=== PATIENT | male | born 1980 | race Caucasian/White ===

== ENCOUNTER 2019-10-14 17:00 | Emergency (ER) | payer MEDICAID ==
[~2019-10-14] VITALS: Ht 180.3 cm; Wt 108.9 kg
--- NOTE | 2019-10-14 17:06 | NUR ---
Patient ambulated to bed 3. RN evaluating patient at bedside.
[2019-10-14 17:13] VITALS: BP 132/102
--- NOTE | 2019-10-14 17:18 | NUR ---
39 Y/O M PRESENTING WITH ANAL PAIN DESCRIBED POKING SENSATION X2 DAYS 02/04. DENIES INJURY TO AREA. PER PT NOTICED BLEEDING NEXT TO ANAL AREA AND SLIGHT BLEEDING ON STOOL. LBM TODAY. PAIN WORSENED WITH PASSING OF STOOL. CHANGING UNDERWEAR Q12HRS. STATES NOTICES BLOOD AT NIGHTTIME, NOT MUCH BLEEDING THROUGHOUT THE DAY PER PT THERE IS A SMALL LUMP TO PERIANAL AREA. PT NKA. NO MEDICAL HX. RX NONE, PT MENTIONS USING [employer] RECREATIONAL DRUG. DENIES N/V/D. HX- NONE RX-NONE
--- NOTE | 2019-10-14 17:28 | NUR ---
ACCOMPANIED JARVIS TRAVIS FOR RECTAL EXAM.
--- NOTE | 2019-10-14 17:44 | NUR ---
Patient discharged with v/s stable. Written and verbal after care instructions given and explained. Patient alert, oriented and verbalized understanding of instructions. Ambulatory with steady gait. All questions addressed prior to discharge. ID band removed. Patient advised to follow up with PMD. Rx of IBUPROFEN, ANUSOL CREAM, COLACE given. Patient educated on indication of medication including possible reaction and side effects. Opportunity to ask questions provided and answered.
[2019-10-14 17:45] VITALS: BP 123/89
== END 2019-10-14 17:44 | disposition home or self-care (01) ==
LOC: MED 17:00
DX: K64.5 Perianal venous thrombosis (principal); R03.0 Elevated blood-pressure reading, without diagnosis of hypertension
CPT/HCPCS: 99282